=== PATIENT | female | born 1980 | race Caucasian/White ===

== ENCOUNTER 2016-10-18 20:03 | Emergency (ER) | payer OTHER ==
[~2016-10-18] VITALS: Ht 162.6 cm; Wt 77.0 kg
[~2016-10-18 20:03] MED LIST: PREN-19 PO
[2016-10-18 20:05] VITALS: Ht 162.6 cm; Wt 77.0 kg
[2016-10-18] MEDS ORDERED: LIDOCAINE 1% (MDV) 20 ML INJ SC ONE (23:00)
[2016-10-18 23:19] LABS: URINE BLOOD (Dip) POC 3+ (NEGATIVE)
[2016-10-18] MEDS ORDERED: SULF1TAB31 PO (23:19)
[2016-10-18] MEDS ORDERED: IBUP800T25 PO (23:19)
[2016-10-18] MEDS ORDERED: CEPH-443 PO (23:19)
--- NOTE | 2016-10-18 23:37 | ERD ---
ER Documentation Chief Complaint Date/Time DATE: 10/18/16 TIME: 23:33 Chief Complaint abscess genital area HPI 36-year-old female coming in complaining of an abscess to her genital area. Patient gave 5 weeks ago. 3 years ago with her previous she also developed an abscess within the vaginal region after giving . Patient states she has been applying Preparation H the site however it becomes more painful. Patient denies fever. Denies chest pain denies shortness of breath. Denies abdominal pain. Patient is currently taking Macrobid for UTI. Denies back pain. Denies hematuria. ROS All systems reviewed and are negative except as per history of present illness. Medications Home Meds Active Scripts Ibuprofen* (Motrin*) 800 Mg Tab, 800 MG PO Q6, #30 TAB Prov:CARMEN ALLRED PA-C 10/18/16 Cephalexin* (Keflex*) 500 Mg Capsule, 500 MG PO QID for 7 Days, CAP Prov:CARMEN ALLRED PA-C 10/18/16 Sulfamethoxazole/Trimethoprim* (Bactrim Ds* Tablet) 1 Each Tablet, 1 TAB PO BID , #14 TAB Prov:CARMEN ALLRED PA-C 10/18/16 Reported Medications Vit-Iron,Carbonyl-FA (Prenatabs Rx) 1 Tab Tablet, 1 TAB PO DAILY 12/06/12 Allergies Allergies: Coded Allergies: No Known Allergy (Unverified , 12/06/12) PMhx/Soc Medical and Surgical Hx: pt denies Medical Hx, pt denies Surgical Hx History of Surgery: No Anesthesia Reaction: No Hx Neurological Disorder: No Hx Respiratory Disorders: No Hx Cardiac Disorders: No Hx Psychiatric Problems: No Hx Miscellaneous Medical Probl: No Hx Alcohol Use: No Hx Substance Use: No Hx Tobacco Use: No Smoking Status: Never smoker Physical Exam Vitals Vital Signs Date Time Temp Pulse Resp B/P Pulse Ox O2 Delivery O2 Flow Rate FiO2 10/18/16 20:05 100.2 98 20 125/78 100 Physical Exam GENERAL: The patient is well-appearing, well-nourished, in no acute distress CHEST: Clear to auscultation bilaterally. There are no rales, wheezes or rhonchi. HEART: Regular rate and rhythm. No murmurs, clicks, rubs or gallops. No S3 or S4. ABDOMEN:Soft, nontender and nondistended. Good bowel sounds. No rebound or guarding. No gross peritonitis. No gross organomegaly or masses. No Pineda sign or McBurney point tenderness. BACK: No midline or flank tenderness. SKIN: Indurated mass on the right labia. No fluctuance. No streaking. Tender to palpation. Results 24 hrs Laboratory Tests Test 10/18/16 23:26 Bedside Urine pH (LAB) 6.0 Bedside Urine Protein (LAB) Trace Bedside Urine Glucose (UA) Negative Bedside Urine Ketones (LAB) Negative Bedside Urine Blood 3+ Bedside Urine Nitrite (LAB) Negative Bedside Urine Leukocyte Esterase (L Trace Current Medications Medications (Trade) Dose Ordered Sig/Dwain Route PRN Reason Start Time Stop Time Status Last Admin Dose Admin Lidocaine (Xylocaine 1% (Mdv) 20 ml) 20 ml ONCE ONCE SC 10/18/16 23:00 10/18/16 23:01 DC Procedures/MDM ER course: Vaginal region area clean. 3 cc plain lidocaine injected. Small 1 cm incision made. No purulence extracted. Minor bleeding. Urinalysis evaluated. I will send for culture. MDM: I have low suspicion for deep tracking abscess. Patient has cellulitic infection and I recommend patient to use warm compresses and take oral antibiotics and return in 2 days for reevaluation. Patient's vital signs are stable. I do not feel that there is indication for blood work or imaging at today's visit. I have low suspicion for thrombosed hemorrhoid. There is no blue dye evaluated on exam. I have low suspicion for pyelonephritis. Patient does have signs of urinary infection on urinalysis however I feel patient would benefit from urine culture as she is currently already taking Macrobid. Patient will continue take Macrobid until urine culture results have returned. Patient will be discharged with Keflex and Bactrim and told to use warm compresses and sitz baths at home. Patient will return in 2 days for close evaluation. Departure Diagnosis: Primary Impression: Abscess Condition: Stable Patient Instructions: Abscess, Incision And Drainage Referrals: AURELIANO MICHEL (PCP) Additional Instructions: FOLLOW UP WITH YOUR PRIMARY CARE PHYSICIAN TOMORROW.Return to this facility if you are not improving as expected. CARMEN ALLRED PA-C Oct 18, 2016 23:36
[2016-10-18] MEDS ORDERED: CLOT30CR24 TOP (23:57)
[2016-10-19 00:02] VITALS: BP 111/64; PULSE 71; RESP 16; TEMP 98.9
== END 2016-10-19 00:04 | disposition home or self-care (01) ==
LOC: FTE 20:03
DX: N76.4 Abscess of vulva (principal)
CPT/HCPCS: 56405; 81003; 87086; Z7502; Z7610

== ENCOUNTER 2018-04-12 18:29 | Inpatient (IN) | payer BC ==
[~2018-04-12] VITALS: Ht 175.3 cm; Wt 78.7 kg
[~2018-04-12 18:29] MED LIST changes: +CEPH-443 PO; +CLOT30CR24 TOP; +IBUP800T48 PO; +SULF1TAB31 PO
[2018-04-12 18:54] VITALS: BP 121/69; PULSE 103; RESP 16
[2018-04-12] MEDS ORDERED: HYDROCODONE/APAP (5/325) TAB PO PRN (20:00)
[2018-04-12] MEDS ORDERED: NACL 0.9% 3 ML SYG IV SCH (20:00)
[2018-04-12] MEDS ORDERED: ACETAMINOPHEN 325 MG TAB PO PRN (20:00)
[2018-04-12] MEDS ORDERED: ONDANSETRON 4 MG INJ IV PRN (20:00)
[2018-04-12] MEDS ORDERED: BISACODYL (EC) 5 MG TAB PO PRN (20:00)
[2018-04-12] MEDS ORDERED: DOCUSATE SODIUM 100 MG CAP PO PRN (20:00)
[2018-04-12 20:47] VITALS: Ht 175.3 cm; Wt 78.7 kg
[2018-04-12] MEDS ORDERED: morphine 2 MG INJ IV PRN (23:00)
[2018-04-12] MEDS ORDERED: HYDROmorphONE 0.5 MG/0.5 ML SYG IV PRN (23:30)
--- NOTE | 2018-04-12 23:33 | QN ---
Documentation Comment Patient seen and examined at the bedside. Upon review of insurance patient is a [facility] patient. I spoke with Dr. Deric Hill who accepted the patient. Care will be transferred to him as the Attending. Admitting orders were placed prior to knowledge of her insurance, currently on abx. CT scan pending. MATTHIAS SMITH Apr 12, 2018 23:33
[2018-04-12] MEDS: metroNIDAZOLE 500 MG/NS (PMX) 100 ML IVPB SCH (23:46)
[2018-04-13] MEDS: CIPROFLOXACIN 400MG/D5W 200 ML IVPB SCH ×3 (00:54→20:45)
[2018-04-13 05:27] VITALS: BP 95/51; PULSE 88; RESP 18
[2018-04-13] MEDS: metroNIDAZOLE 500 MG/NS (PMX) 100 ML IVPB SCH ×4 (05:28→17:34)
[2018-04-13] MEDS: ONDANSETRON 4 MG INJ IV PRN ×2 (06:39→13:17)
[2018-04-13 07:28] VITALS: BP 114/64; PULSE 90; RESP 16
[2018-04-13] MEDS ORDERED: SOD CHLORIDE 0.9% 100 ML ONE (08:12)
[2018-04-13] MEDS ORDERED: IOHEXOL 300MG/ML 150 ML BTL ONE (08:12)
--- NOTE | 2018-04-13 12:16 | CONS ---
Assessment/Plan Assessment/Plan Hospital Course (Demo Recall) 1. 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 Perineal pain: -Pain management -As above 3. Leukocytosis: -As above 4. Overweight BMI: 26 -diet and exercise optimization -encourage weight loss Thank you. Patient seen and examined in collaboration with Dr. Kiko Abebe. Consultation Date/Type/Reason Admit Date/Time Apr 12, 2018 at 18:29 Type of Consult Surgical Reason for Consultation Perineal abscess Requesting Provider: WARNER ESPINOSA MD Date/Time of Note DATE: 04/13/18 TIME: 12:03 Hx of Present Illness Misa Swift is a 37-year-old woman with past medical history of Bartholin abscess with recurrence and , who presented to outside hospital with recurrence of perineal pain, with concern for recurrence of abscess. Notably, her initial abscess was approximately 5 years ago, for which she received an incision and drainage. Last month however she reportedly had the same issue and sought help in [facility], for which incision and drainage was performed, o n 2 separate occasions. She once again presents with similar symptoms. Laboratory findings significant for leukocytosis. Associated symptoms include perineal pain, now with noted drainage from site. She denies fevers, chills, congested cough, chest pain, palpitations, change in bowel or bladder habits, dysuria, any other skin issues. General surgery was asked to evaluate. 12 point review of systems was performed and is negative except for as stated in HPI. Past Medical History As above Home Meds Active Scripts Clotrimazole* (Clotrimazole* AF) 1% - 30 Gm Cream.gm., 1 APPLIC TOP BID for 7 Days, TUB Prov:CARMEN ALLRED PA-C 10/18/16 Ibuprofen* (Motrin*) 800 Mg Tab, 800 MG PO Q6, #30 TAB Prov:CARMEN ALLRED PA-C 10/18/16 Cephalexin* (Keflex*) 500 Mg Capsule, 500 MG PO QID for 7 Days, CAP Prov:CARMEN ALLRED PA-C 10/18/16 Sulfamethoxazole/Trimethoprim* (Bactrim Ds* Tablet) 1 Each Tablet, 1 TAB PO BID, #14 TAB Prov:CARMEN ALLRED PA-C 10/18/16 Reported Medications Vit-Iron,Carbonyl-FA (Prenatabs Rx) 1 Tab Tablet, 1 TAB PO DAILY 12/06/12 Medications Current Medications IV Flush (NS 3 ml) 3 ml PER PROTOCOL IV ; Start 04/12/18 at 20:00 Acetaminophen (Tylenol Tab) 650 mg Q6H PRN PO .PAIN 1-3 OR TEMP; Start 04/12/18 at 20:00 Acetaminophen/ Hydrocodone Bitart ([place] (5/325)) 1 tab Q6H PRN PO .MOD PAIN 4- 6 Last administered on 04/12/18 21:47; Admin Dose 1 TAB; Start 04/12/18 at 20:00 Docusate Sodium (Colace) 100 mg Q12H PRN PO .CONSTIPATION; Start 04/12/18 at 20:00 Bisacodyl (Dulcolax) 5 mg DAILY PRN PO .CONSTIPATION Last administered on 04/13/18 11:36; Admin Dose 5 MG; Start 04/12/18 at 20:00 Ondansetron HCl (Zofran Inj) 4 mg Q4 PRN IV NAUSEA/VOMITING Last administered on 04/13/18 06:39; Admin Dose 4 MG; Start 04/12/18 at 23:30 Hydromorphone HCl (Dilaudid) 0.5 mg Q4H PRN IV SEVERE PAIN LEVEL 7-10 Last administered on 04/13/18 06:39; Admin Dose 0.5 MG; Start 04/12/18 at 23:30 Ciprofloxacin/ Dextrose 200 ml @ 200 mls/hr Q12 IVPB Last administered on 04/13/18 08:22; Admin Dose 200 MLS/HR; Start 04/12/18 at 23:30 Metronidazole 100 ml @ 100 mls/hr Q6 IVPB Last administered on 04/13/18 11:36; Admin Dose 100 MLS/HR; Start 04/12/18 at 23:30 Allergies: Coded Allergies: No Known Allergy (Unverified , 12/06/12) Past Surgical History As above Family History Significant Family History: no pertinent family hx Social History Smoking Status: Never smoker Exam/Review of Systems Exam Vitals Vital Signs Date Temp Pulse Resp B/P (MAP) Pulse Ox O2 O2 Flow FiO2 Time Delivery Rate 04/13/18 98.5 90 16 114/64 97 07:28 (81) 04/12/18 Room Air 18:54 Intake and Output 04/12/18 04/12/18 04/13/18 1515:00 23:00 07:00 IntakeIntake Total 1200 ml OutputOutput Total 400 ml BalanceBalance 800 ml Constitutional: alert, oriented Psych: anxiety Head: normocephalic, atraumatic Eyes: nl conjunctiva, EOMI, nl lids, nl sclera ENMT: nl external ears & nose, nl lips & teeth, nl nasal mucosa & septum, mucosa pink and moist Neck: supple, non-tender; No jvd Respiratory: normal air movement; No congested cough, No labored breathing Cardiovascular: regular rate and rhythm Gastrointestinal: soft, non-tender Genitourinary - Female: other (bartholin gland: edematous with purulent drainage; perineal edema; hemorrhoids) Musculoskeletal: nl extremities to inspection, nl gait and stance Extremities: normal pulses Neurological: nl mental status, nl speech, nl strength Skin: No rash or lesions Lymph: nl lymph nodes Results Result Diagram: 04/13/1842204/12/181958 Results 24hrs Laboratory Tests Test 04/12/18 19:59 04/12/18 22:05 04/12/18 23:55 04/13/18 04:22 White Blood Count 15.8 H Red Blood Count 4.21 Hemoglobin 12.5 Hematocrit 38.8 Mean Corpuscular 92.2 Volume Mean Corpuscular 29.7 Hemoglobin Mean Corpuscular 32.2 Hemoglobin Concent Red Cell 14.5 Distribution Width Platelet Count 382 Mean Platelet Volume 10.2 Immature 0.600 H Granulocytes % Neutrophils % 82.3 H Lymphocytes % 9.5 L Monocytes % 6.8 Eosinophils % 0.3 Basophils % 0.5 Nucleated Red Blood 0.0 Cells % Immature 0.090 H Granulocytes # Neutrophils # 13.1 H Lymphocytes # 1.5 Monocytes # 1.1 H Eosinophils # 0.0 Basophils # 0.1 Nucleated Red Blood 0.0 Cells # Sodium Level 141 Potassium Level 3.7 Chloride Level 107 Carbon Dioxide Level 27 Anion Gap 7 Blood Urea Nitrogen 10 Creatinine 0.52 Est Glomerular > 60 Filtrat Rate mL/min Glucose Level 120 Calcium Level 9.3 Total Bilirubin 0.1 L Direct Bilirubin 0.00 Indirect Bilirubin 0.1 Aspartate Amino 20 Transf (AST/SGOT) Alanine 21 Aminotransferase (AL T/SGPT) Alkaline Phosphatase 74 Total Protein 7.2 Albumin 3.9 Globulin 3.30 H Albumin/Globulin 1.18 Ratio Serum HCG, NEGATIVE Qualitative Urine Test NEGATIVE Hemoglobin A1c 5.1 Magnesium Level 1.8 Triglycerides Level 51 Cholesterol Level 126 LDL Cholesterol, 63 Calculated HDL Cholesterol 53 Cholesterol/HDL 2.3 Ratio Thyroid Stimulating 1.880 Hormone (TSH) Test 04/13/18 04:23 White Blood Count 13.9 H Red Blood Count 4.12 L Hemoglobin 12.2 Hematocrit 37.6 Mean Corpuscular 91.3 Volume Mean Corpuscular 29.6 Hemoglobin Mean Corpuscular 32.4 Hemoglobin Concent Red Cell 14.6 H Distribution Width Platelet Count 369 Mean Platelet Volume 10.6 H Immature 0.400 Granulocytes % Neutrophils % 78.8 H Lymphocytes % 12.0 L Monocytes % 8.1 Eosinophils % 0.3 Basophils % 0.4 Nucleated Red Blood 0.0 Cells % Immature 0.050 H Granulocytes # Neutrophils # 10.9 H Lymphocytes # 1.7 Monocytes # 1.1 H Eosinophils # 0.0 Basophils # 0.1 Nucleated Red Blood 0.0 Cells # Medications Medication Current Medications IV Flush (NS 3 ml) 3 ml PER PROTOCOL IV ; Start 04/12/18 at 20:00 Acetaminophen (Tylenol Tab) 650 mg Q6H PRN PO .PAIN 1-3 OR TEMP; Start 04/12/18 at 20:00 Acetaminophen/ Hydrocodone Bitart ([place] (5/325)) 1 tab Q6H PRN PO .MOD PAIN 4- 6 Last administered on 04/12/18at 21:47; Admin Dose 1 TAB; Start 04/12/18 at 20:00 Docusate Sodium (Colace) 100 mg Q12H PRN PO .CONSTIPATION; Start 04/12/18 at 20:00 Bisacodyl (Dulcolax) 5 mg DAILY PRN PO .CONSTIPATION Last administered on 04/13/18at 11:36; Admin Dose 5 MG; Start 04/12/18 at 20:00 Ondansetron HCl (Zofran Inj) 4 mg Q4 PRN IV NAUSEA/VOMITING Last administered on 04/13/18 06:39; Admin Dose 4 MG; Start 04/12/18 at 23:30 Hydromorphone HCl (Dilaudid) 0.5 mg Q4H PRN IV SEVERE PAIN LEVEL 7-10 Last administered on 04/13/18 06:39; Admin Dose 0.5 MG; Start 04/12/18 at 23:30 Ciprofloxacin/ Dextrose 200 ml @ 200 mls/hr Q12 IVPB Last administered on 04/13/18 08:22; Admin Dose 200 MLS/HR; Start 04/12/18 at 23:30 Metronidazole 100 ml @ 100 mls/hr Q6 IVPB Last administered on 04/13/18 11:36; Admin Dose 100 MLS/HR; Start 04/12/18 at 23:30 TASHA ATKINSON [employer] Apr 13, 2018 12:16
--- NOTE | 2018-04-13 13:26 | QN ---
Documentation Comment seen and examined WARNER ESPINOSA MD Apr 13, 2018 13:26
[2018-04-13 14:39] VITALS: BP 129/70; PULSE 91; RESP 16
--- NOTE | 2018-04-13 17:52 | HP ---
DATE OF ADMISSION: 04/12/2018 REASON FOR ADMISSION: Perianal pain for the last 3 to 4 days. HISTORY OF PRESENTING ILLNESS: This is a 37-year-old female with a past medical history of Bartholin abscesses status post multiple I and D, history of , who was sent in from [facility] [place] [facility] f or perianal abscess. Patient said that she has been having these Bartholin abscesses for many years. Last 5 years, she had a Bartholin abscess that was drained by Dr. Abebe. This year, February, she went to [facility] and had I and D twice. She was discharged home. However, she went to [facility] again because she was having perianal pain for the last 3 days. Patient had labs that primo wed white count of 16.1, hemoglobin 13.0, platelet count 362; sodium 139, potassium 3.8, chloride 105 , bicarb 27, BUN of 8, creatinine 0.6. Patient was transferred due to insurance reasons, due to federico anal abscess. PAST MEDICAL HISTORY: 1. History of . 2. History of Bartholin abscesses. ALLERGIES: None. HOME MEDICATIONS: Keflex, ibuprofen, vitamins. SOCIAL HISTORY: Denies any history of smoking, alcohol, any drug use. Currently lives with the [facility]. Has 2 small children. FAMILY HISTORY: Noncontributory. REVIEW OF SYSTEMS: Patient complains of perianal pain associated with some discharge for the past 2 to 3 days. Denies any fevers and chills. Denies any chest pain, any shortness of breath, any abdomi nal pain. Had some episode of vomiting yesterday. Denies any hematemesis, any melena, any bright re d blood per rectum. PHYSICAL EXAMINATION: VITAL SIGNS: Currently, blood pressure 114/64, afebrile, heart rate 90, saturating 97%. GENERAL: The patient is awake, alert, oriented and does not appear to be in any acute distress. HEENT: Pupils equal, round, reactive to light. NECK: Supple. No JVD. HEART: Regular rate and rhythm. LUNGS: Clear to auscultation bilaterally. ABDOMEN: Soft, nontender, nondistended. GENITALIA/RECTAL: Patient has a Bartholin gland edematous and noted to have purulent discharge, extr micaela tender on palpation. Perianal edema. EXTREMITIES: No clubbing, cyanosis or edema. LABORATORY DATA: White count now 13.9, hemoglobin 12.2, platelet count 369. BMP within normal limit . ASSESSMENT: This is a 37-year-old female who presented with: 1. Recurrent Bartholin abscess, status post multiple I and D. 2. Perianal pain secondary to above. 3. Leukocytosis secondary to above. PLAN: At this period of time, patient is admitted to med/surg. CT of the abdomen and pelvis is pend ing to rule out abscess. Patient is also on Cipro and Flagyl. Colorectal surgery consultation has a lready been requested. Rest of the treatment will depend on the patient's hospitalization course. Dictated By: WARNER ELDRIDGE/SUZETTE Conf#: [id number] DID#: [id number] CC: TAYLA QUINTANILLA MD;*EndCC*
[2018-04-13 19:20] VITALS: BP 111/63; PULSE 88; RESP 18
[2018-04-14] MEDS: metroNIDAZOLE 500 MG/NS (PMX) 100 ML IVPB SCH ×4 (00:13→18:12)
[2018-04-14 01:52] VITALS: BP 106/61; PULSE 78; RESP 18
[2018-04-14 07:17] VITALS: BP 112/63; PULSE 78; RESP 16
[2018-04-14] MEDS: CIPROFLOXACIN 400MG/D5W 200 ML IVPB SCH ×2 (09:22→20:30)
--- NOTE | 2018-04-14 11:40 | PN ---
Date/Time of Note Date/Time of Note DATE: 04/14/18 TIME: 11:33 Assessment/Plan Lines/Catheters IV Catheter Type (from Nrsg): Saline Lock Jane in Place (from Nrsg): No Assessment/Plan Chief Complaint/Hosp Course 1. 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 Perineal pain: much improved -Pain management -As above 3. Leukocytosis: resolved -As above 4. Overweight BMI: 26 -diet and exercise optimization -encourage weight loss Thank you. Patient seen and examined in collaboration with Dr. Kiko Abebe. Subjective 24 Hr Interval Summary Spontaneous drainage of perineal abscess yesterday. WBC normalized. No fevers, chills, sob, congested cough, cp, palpitations, hassan, dizziness, n/v/d/dysuria. Exam/Review of Systems Vital Signs Vitals Vital Signs Date Temp Pulse Resp B/P (MAP) Pulse Ox O2 O2 Flow FiO2 Time Delivery Rate 04/14/18 98.8 78 16 112/63 95 07:17 (79) 04/12/18 Room Air 18:54 Intake and Output 04/13/18 04/13/18 04/14/18 1515:00 23:00 07:00 IntakeIntake Total 780 ml 580 ml 400 ml OutputOutput Total 350 ml 1000 ml 600 ml BalanceBalance 430 ml -420 ml -200 ml Exam Free Text/Dictation Constitutional: alert, oriented Psych: anxiety Head: normocephalic, atraumatic Eyes: nl conjunctiva, EOMI, nl lids, nl sclera ENMT: nl external ears & nose, nl lips & teeth, nl nasal mucosa & septum, mucosa pink and moist Neck: supple, non-tender; No jvd Respiratory: normal air movement; No congested cough, No labored breathing Cardiovascular: regular rate and rhythm Gastrointestinal: soft, non-tender Genitourinary - Female: other (right perineal: improved edema with open area- no purulent drainage noted; perineal edema improved; hemorrhoids) Musculoskeletal: nl extremities to inspection, nl gait and stance Extremities: normal pulses Neurological: nl mental status, nl speech, nl strength Skin: No rash or lesions Lymph: nl lymph nodes Results Result Diagram: 04/14/18 0452 04/14/18 0452 TASHA ATKINSON NP Apr 14, 2018 11:40
[2018-04-14 15:03] VITALS: BP 114/72; PULSE 84; RESP 16
--- NOTE | 2018-04-14 16:35 | PDOCDIS ---
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
--- NOTE | 2018-04-14 16:49 | PN ---
Date/Time of Note Date/Time of Note DATE: 04/14/18 TIME: 16:47 Assessment/Plan VTE Prophylaxis Risk score (from Ns)>0 risk: 0 SCD applied (from Ns): Yes Pharmacological prophylaxis: NA/contraindicated Pharm contraindication: low risk/ambulating Lines/Catheters IV Catheter Type (from Nrsg): Saline Lock Urinary Cath still in place: No Assessment/Plan Assessment/Plan 37-year-old female who presented with: 1. Recurrent Bartholin abscess, status post multiple I and D. Now spontaneously drained 2. Perianal pain secondary to above. 3. Leukocytosis secondary to above. Plan - iv abx -Per surgery since patient has spontaneously drained the abscess so no surgical treatment DC planning with home health and follow-up with colorectal surgeon Result Diagram: 04/14/182 04/14/182 Results 24hrs Laboratory Tests Test 04/14/18 04:52 White Blood Count 7.7 # Red Blood Count 4.19 L Hemoglobin 12.3 Hematocrit 38.3 Mean Corpuscular Volume 91.4 Mean Corpuscular Hemoglobin 29.4 Mean Corpuscular Hemoglobin Concent 32.1 Red Cell Distribution Width 14.6 H Platelet Count 387 Mean Platelet Volume 10.5 H Immature Granulocytes % 0.400 Neutrophils % 63.0 Lymphocytes % 25.9 Monocytes % 8.9 Eosinophils % 1.0 Basophils % 0.8 Nucleated Red Blood Cells % 0.0 Immature Granulocytes # 0.030 Neutrophils # 4.9 Lymphocytes # 2.0 Monocytes # 0.7 Eosinophils # 0.1 Basophils # 0.1 Nucleated Red Blood Cells # 0.0 Sodium Level 140 Potassium Level 3.8 Chloride Level 105 Carbon Dioxide Level 26 Anion Gap 9 Blood Urea Nitrogen 9 Creatinine 0.45 Est Glomerular Filtrat Rate mL/min > 60 Glucose Level 93 Calcium Level 9.1 Subjective 24 Hr Interval Summary Free Text/Dictation Abscess spontaneously drained Exam/Review of Systems Exam Vitals Vital Signs Date Temp Pulse Resp B/P (MAP) Pulse Ox O2 O2 Flow FiO2 Time Delivery Rate 04/14/18 98.9 84 16 114/72 97 15:03 (86) 04/12/18 Room Air 18:54 Intake and Output 04/13/18 04/13/18 04/14/18 1515:00 23:00 07:00 IntakeIntake Total 780 ml 580 ml 400 ml OutputOutput Total 350 ml 1000 ml 600 ml BalanceBalance 430 ml -420 ml -200 ml Exam Genitourinary - Female: other (right perineal: improved edema with open area- no purulent drainage noted; perineal edema improved Results Results 24hrs Laboratory Tests Test 04/14/18 04:52 White Blood Count 7.7 # Red Blood Count 4.19 L Hemoglobin 12.3 Hematocrit 38.3 Mean Corpuscular Volume 91.4 Mean Corpuscular Hemoglobin 29.4 Mean Corpuscular Hemoglobin Concent 32.1 Red Cell Distribution Width 14.6 H Platelet Count 387 Mean Platelet Volume 10.5 H Immature Granulocytes % 0.400 Neutrophils % 63.0 Lymphocytes % 25.9 Monocytes % 8.9 Eosinophils % 1.0 Basophils % 0.8 Nucleated Red Blood Cells % 0.0 Immature Granulocytes # 0.030 Neutrophils # 4.9 Lymphocytes # 2.0 Monocytes # 0.7 Eosinophils # 0.1 Basophils # 0.1 Nucleated Red Blood Cells # 0.0 Sodium Level 140 Potassium Level 3.8 Chloride Level 105 Carbon Dioxide Level 26 Anion Gap 9 Blood Urea Nitrogen 9 Creatinine 0.45 Est Glomerular Filtrat Rate mL/min > 60 Glucose Level 93 Calcium Level 9.1 Medications Medication Current Medications IV Flush (NS 3 ml) 3 ml PER PROTOCOL IV ; Start 04/12/18 at 20:00 Acetaminophen (Tylenol Tab) 650 mg Q6H PRN PO .PAIN 1-3 OR TEMP Last administered on 04/13/18at 14:45; Admin Dose 650 MG; Start 04/12/18 at 20:00 Acetaminophen/ Hydrocodone Bitart ([place] (5/325)) 1 tab Q6H PRN PO .MOD PAIN 4- 6 Last administered on 04/12/18at 21:47; Admin Dose 1 TAB; Start 04/12/18 at 20:00 Docusate Sodium (Colace) 100 mg Q12H PRN PO .CONSTIPATION; Start 04/12/18 at 20:00 Bisacodyl (Dulcolax) 5 mg DAILY PRN PO .CONSTIPATION Last administered on 04/13/18at 11:36; Admin Dose 5 MG; Start 04/12/18 at 20:00 Ondansetron HCl (Zofran Inj) 4 mg Q4 PRN IV NAUSEA/VOMITING Last administered on 04/13/18at 13:17; Admin Dose 4 MG; Start 04/12/18 at 23:30 Hydromorphone HCl (Dilaudid) 0.5 mg Q4H PRN IV SEVERE PAIN LEVEL 7-10 Last administered on 04/13/18at 06:39; Admin Dose 0.5 MG; Start 04/12/18 at 23:30 Ciprofloxacin/ Dextrose 200 ml @ 200 mls/hr Q12 IVPB Last administered on 04/14/18at 09:22; Admin Dose 200 MLS/HR; Start 04/12/18 at 23:30 Metronidazole 100 ml @ 100 mls/hr Q6 IVPB Last administered on 04/14/18at 12:29; Admin Dose 100 MLS/HR; Start 04/12/18 at 23:30 WARNER ESPINOSA MD Apr 14, 2018 16:49
--- NOTE | 2018-04-14 18:07 | DS ---
DATE OF ADMISSION: 04/12/2018 DATE OF DISCHARGE: 04/14/2018 HISTORY OF PRESENTING ILLNESS AND HOSPITAL COURSE: This is a 37-year-old female with a past medical history of Bartholin abscess, status post multiple I and Ds, sent in from [facility] for perineal abscess. The patient said that she has been having these Bartholin abscesses for many years. For last 5 years, she had a Bartholin abscess that was drained by Dr. Abebe. She went to [facility] and had I and D twice. She was discharged home. She went to [facility] because she was having perineal pain for the last 3 days. She had labs that showed white count of 16.1. She was transferred due to insurance reasons. On admission, vital signs were stable. The patient was seen by Dr. Abebe for surgery consultation. She had a CT of the abdomen and pelvis that showed 2.4 x 1.6 cm fluid collection in the perineal region clinically suspicious for abscess. The patient was started on Cipro and Flagyl per Dr. Abebe. The patient needs a referral for colorectal specialist to call Dr. Lowe. They were concerned about possible fistula formation; however Dr. Lowe was not contacted due to insurance, so he refused to see the patient. However next day, the abscess drained spontaneously. The cultures were sent that were positive for gram-negative rods. They recommended for drainage collection. According to them, patient can be discharged home and follow up with home health. White count came down to 7.1. Follow with home health for wound care and colorectal specialist. FINAL DISCHARGE DIAGNOSES: 1. Recurrent Bartholin abscess, status post multiple I and D, concern for fistula. Need to see a colorectal surgeon as outpatient. Positive for gram- negative rods. +enterococcus and mDRD Ecoli 2. Perianal pain, much improved. 3. Leukocytosis, resolved. 4. Overweight BMI. DISCHARGE CONDITION: Stable. DISCHARGE MEDICATIONS: 1. s/p fosfomycin 3 g px 1 in hospital 2. bactrim x 7 days DISCHARGE INSTRUCTIONS: The patient was instructed to follow up with PCP 1 to 2 weeks and also referral was put in for home health nurse for wound care and colorectal surgeon as an outpatient. Dictated By: WARNER ELDRIDGE/SUZETTE Conf#: [id number] [facility]#: [id number] CC: TAYLA QUINTANILLA MD; DAVID ABEBE MD;*EndCC* MTDD
[2018-04-14 19:39] VITALS: BP 127/81; PULSE 105; RESP 18
[2018-04-14 20:04] VITALS: BP 116/73; PULSE 79; RESP 18
[2018-04-15] MEDS: metroNIDAZOLE 500 MG/NS (PMX) 100 ML IVPB SCH ×3 (00:19→13:42)
[2018-04-15 08:00] VITALS: BP 119/72; PULSE 88; RESP 18
[2018-04-15] MEDS: CIPROFLOXACIN 400MG/D5W 200 ML IVPB SCH (09:06)
[2018-04-15 13:29] VITALS: BP 116/73; PULSE 98; RESP 18
[2018-04-15] MEDS ORDERED: SULF1TAB31 PO (13:40)
--- NOTE | 2018-04-15 13:42 | QN ---
Documentation Comment seen and examined see dc summary WARNER ESPINOSA MD Apr 15, 2018 13:42
--- NOTE | 2018-04-15 13:45 | PN ---
Date/Time of Note Date/Time of Note DATE: 04/15/18 TIME: 13:43 Assessment/Plan Lines/Catheters IV Catheter Type (from Nrsg): Saline Lock Jane in Place (from Nrsg): No Assessment/Plan Chief Complaint/Hosp Course 1. Recurrent Bartholin abscess status post multiple incision and drainage; concern for fistula, CT noted; abscess drained spontaneously -Recommend colorectal surgeon consult- can follow up as outpatient -Cultures noted -Warm packs for drainage facilitation -Antibiotics -Ok for discharge per medical team with follow up with colorectal specialist and Home health for wound care, antibiotics 2. Perineal pain: much improved -Pain management -As above 3. Leukocytosis: resolved -As above 4. Overweight BMI: 26 -diet and exercise optimization -encourage weight loss Thank you. Patient seen and examined in collaboration with Dr. Kiko Abebe. Subjective 24 Hr Interval Summary Feels well. No drainage noted from the perineum. no fevers, chills, sob, congested cough, cp, palpitations, hassan, dizziness, nausea, vomiting, diarrhea, dysuria. Exam/Review of Systems Vital Signs Vitals Vital Signs Date Temp Pulse Resp B/P (MAP) Pulse Ox O2 O2 Flow FiO2 Time Delivery Rate 04/15/18 99.4 98 18 116/73 98 13:29 (87) 04/12/18 Room Air 18:54 Intake and Output 04/14/18 04/14/18 04/15/18 1515:00 23:00 07:00 IntakeIntake Total 720 ml 680 ml 200 ml OutputOutput Total 1000 ml 400 ml BalanceBalance -280 ml 280 ml 200 ml Exam Free Text/Dictation Constitutional: alert, oriented Psych: anxiety Head: normocephalic, atraumatic Eyes: nl conjunctiva, EOMI, nl lids, nl sclera ENMT: nl external ears & nose, nl lips & teeth, nl nasal mucosa & septum, mucosa pink and moist Neck: supple, non-tender; No jvd Respiratory: normal air movement; No congested cough, No labored breathing Cardiovascular: regular rate and rhythm Gastrointestinal: soft, non-tender Genitourinary - Female: other (right perineal: improved edema with open area- no purulent drainage noted; perineal edema improved; hemorrhoids) Musculoskeletal: nl extremities to inspection, nl gait and stance Extremities: normal pulses Neurological: nl mental status, nl speech, nl strength Skin: No rash or lesions Lymph: nl lymph nodes Results Result Diagram: 04/15/18 0431 04/14/18 [id number] TASHA ATKINSON NP Apr 15, 2018 13:45
[2018-04-15] MEDS ORDERED: FOSFOMYCIN 3 GM PACKET PO ONE (14:00)
== END 2018-04-15 15:40 | disposition home health service (06) | DRG 759 ==
LOC: 2NE 18:29
PROVIDERS: ADMIT Internal Medicine Nephrology; ATTEND Internal Medicine Nephrology
DX: N75.1 Abscess of Bartholin's gland (principal)
CPT/HCPCS: 74177; 80048; 80053; 80061; 83036; 83735; 84443; 84703; 85025; 87070; J0744; J1170; J2270; J2405; Q9967